=== PATIENT | male | born 1955 | race Caucasian/White ===

== ENCOUNTER 2017-05-19 12:23 | Emergency (ER) | payer BC ==
[2017-05-19] MEDS ORDERED: Morphine 4 MG/ML VIAL ONE (13:10)
[2017-05-19 13:32] LABS: #Basophils 0.1 thou/uL (0.0-0.2); #Lymphocytes 1.5 thou/uL (1.20-3.40); #Monocytes 1.4 thou/uL (0.11-0.59); #Neutrophils 15.7 thou/uL (1.40-6.50); %Basophils 0.4 % (0.0-1.0); %Eosinophils 0.1 % (0.0-10.0); %Lymphocytes 8.2 % (21.0-51.0); %Monocytes 7.3 % (0.0-10.0); Hematocrit 46.9 % (42.0-52.0); Mean Platelet Volume 7.7 fL (7.4-10.4); Red Blood Cell (RBC) Count 4.71 mill/uL (4.70-6.10); White Blood Cell (WBC) Count 18.7 thou/uL (4.8-10.8)
--- NOTE | 2017-05-19 13:35 | ULT ---
SCROTAL ULTRASOUND: TECHNIQUE: Burroughs scale, Doppler color flow imaging, and spectral analysis performed. INDICATION: Right scrotal edema, erythema. FINDINGS: Doppler evaluation reveals flow to each testis without sonographic evidence of torsion. Bilateral hy drocele formation is present. No evidence of an intratesticular mass. Right testis measures approximately 5.4 cm in length and the left testis 4.6 cm in length. IMPRESSION: 1. No sonographic evidence of testicular torsion or mass. 2. Bilateral hydrocele formation, more notable on the right. Correlate clinically. POS: ZAHIDA
[2017-05-19] MEDS ORDERED: Ondansetron HCl/PF 4 MG/2 ML Vial ONE (14:27)
[2017-05-19 14:52] LABS: Bilirubin Negative (Negative); Blood, Urine Negative (Negative); Glucose, Urine (Dipstick) Negative (Negative); Ketone, Urine Negative (Negative); Nitrite Positive (Negative); Protein, Urine (Dipstick) Negative (Neg-Trace)
[2017-05-19 14:55] LABS: Bacteria/HPF 3+ HPF (None Seen); Hyaline Casts/LPF 0-3 HYALINE CAST LPF (0-3 Hyaline); RBC/HPF 0-3 HPF (0-3); Squamous Epithelial None Seen HPF (0-3)
[2017-05-19 15:02] LABS: ALT (SGPT) 12 U/L (8-55); AST (SGOT) 15 U/L (5-34); Alkaline Phosphatase 85 U/L (40-150); Anion Gap 13 mmol/L (10-20); BUN (Urea Nitrogen) 12 mg/dL (8.4-25.7); Bilirubin, Total 0.7 mg/dL (0.2-1.2); Calc. Creatinine Clearance 0 mL/min (70-130); Calcium 9.8 mg/dL (7.8-10.44); Carbon Dioxide 30 mmol/L (23-31); Chloride 97 mmol/L (98-107); Estimated GFR-MDRD Greater than 90; Globulin 3.2 g/dL (2.4-3.5); Protein, Total 7.4 g/dL (5.8-8.1)
[2017-05-19] MEDS ORDERED: Ciprofloxacin 500 MG TAB ONE ×2 (15:09→15:28)
== END 2017-05-19 15:08 | disposition home or self-care (01) ==
LOC: ERS 12:23
DX: N39.0 Urinary tract infection, site not specified (principal); E78.5 Hyperlipidemia, unspecified; F17.210 Nicotine dependence, cigarettes, uncomplicated; I10 Essential (primary) hypertension; J44.9 Chronic obstructive pulmonary disease, unspecified; K21.9 Gastro-esophageal reflux disease without esophagitis; Z79.899 Other long term (current) drug therapy
CPT/HCPCS: 36415; 76870; 80053; 81003; 81015; 85025; 93976; 96374; 96375; 99406; J2270; J2405

== ENCOUNTER 2018-07-12 09:26 | Outpatient (CLI) | payer BC ==
--- NOTE | 2018-07-12 12:30 | RAD ---
RADIOGRAPH LUMBAR SPINE 3 VIEWS: 07/12/2018 HISTORY: A 63-year-old male with M48.061, lumbar stenosis with claudication. COMPARISON: 09/19/2010 TECHNIQUE: Three lateral views in flexion, extension, and neutral. FINDINGS: Prior study's AP view demonstrates five lumbar type vertebrae. Vertebral body heights are maintained . Endplate sclerosis and marginal osteophytes at all levels. Disk space narrowing is moderate to se becky at T12-L1, severe at L1-L2 and at L2-L3, moderate at L3-L4 and L4-L5, and severe at L5-S1. The disk space narrowing has worsened at most levels compared to 2010. There is degenerative facet disea se at L5-S1 bilaterally. Slight degenerative retrolisthesis of L1 on L2, L2 on L3, and L3 on L4. No major anterolisthesis. No instability between flexion and extension. Baastrup's disease throughout . IMPRESSION: 1. Lumbar spondylosis with multilevel high-grade degenerative disk disease. 2. No instability between flexion and extension. JN [] POS: ZAHIDA
--- NOTE | 2018-07-12 12:38 | MRI ---
NONCONTRAST MRI LUMBAR SPINE: Date: 07-12-18 History: Lumbar stenosis with claudication. Patient has had many years of low back pain which is now getting worse. Bilateral lower extremity pain and numbness. Comparison: None available. FINDINGS: There are two increased T2 weighted signal intensity lesions within the superior pole of the right ki dney, the largest measures 1.6 cm, statistically likely representing a small cyst but are difficult t o adequately characterize on this exam. The remainder of the retroperitoneal structures demonstrate a normal MRI appearance. Multilevel degenerative changes are seen throughout the lumbar spine with vacuum phenomenon seen at a ll levels. There is a rounded area of increased T1 and T2 weighted signal intensity seen in the L3 ve rtebral body likely reflective of a hemangioma. Generalized heterogeneity of the bone marrow is prese nt. The conus medullaris is normal in appearance and terminates at the inferior aspect of the L1 vertebra l body. T11-12: There is loss of intervertebral disc height. There is a disc osteophyte complex present. Neur al foramina are incompletely imaged, but there is a suggestion of at least moderate left sided neural foraminal narrowing and mild right sided neural foraminal narrowing. There is narrowing of the ventr al subarachnoid space and encroachment on the anterior aspect of the spinal cord. T12-L1: There is loss of intervertebral disc height. There is a disc osteophyte complex present with facet hypertrophic changes. There is mild narrowing of the central spinal canal. The right neural for kashif are patent. L1-2: There is loss of intervertebral disc height. Endplate degenerative changes are present. There i s a disc osteophyte complex and facet degenerative changes. There is mild narrowing of the central sp inal canal. The neural foramina are patent. L2-3: There is loss of intervertebral disc height. Endplate degenerative changes are present. There i s a broad based disc osteophyte complex present. Facet degenerative changes and mild ligamentous hype rtrophy noted. There is moderate to severe narrowing of the central spinal canal as well as narrowing in the lateral recesses at this level. There is moderate to severe right and moderate left sided jaswant ral foraminal narrowing. L3-4: There is loss of intervertebral disc height. There is a broad based disc osteophyte complex pre sent. Facet hypertrophic changes are noted. Findings result in moderate narrowing of the central spin al canal with moderate bilateral neural foraminal narrowing, greater on the right. L4-5: There is a disc osteophyte complex present. Facet hypertrophic changes are noted. There is mild narrowing of the central spinal canal with moderate to severe left and moderate right sided neural f oraminal narrowing. L5-S1: There is a Schmorl's node in the superior endplate of the L5 vertebral body. There is loss of intervertebral disc height at the L5-S1 level with mild endplate degenerative changes present. There is a broad based disc osteophyte complex present. There is severe facet hypertrophic changes noted. T here is mild generalized narrowing of the central spinal canal. There is moderate to severe right and severe left sided neural foraminal narrowing. Due to the disc osteophyte complex, there is encroachm ent on the traversing left S1 nerve root. Endplate degenerative changes are noted at this level. There is mild left convex scoliosis of the lumbar spine. IMPRESSION: 1. Multilevel degenerative changes seen throughout the lumbar spine with disc degenerative changes at all levels of the lumbar spine and visualized lower thoracic spine. Greatest degree of neural forami nal narrowing is seen at the lumbosacral junction where there is severe left sided neural foraminal n arrowing. 2. Increased T2 weighted signal intensity lesions in the right kidney, statistically likely represent ing renal cysts. POS: ZAHIDA
== END 2018-07-12 09:27 | disposition home or self-care (01) ==
LOC: TBSIIMAG 09:26
PROVIDERS: ATTEND Neurological Surgery
DX: M48.062 Spinal stenosis, lumbar region with neurogenic claudication (principal); M47.816 Spondylosis without myelopathy or radiculopathy, lumbar region; M51.36 Other intervertebral disc degeneration, lumbar region; M48.07 Spinal stenosis, lumbosacral region; N28.9 Disorder of kidney and ureter, unspecified; M51.34 Other intervertebral disc degeneration, thoracic region
CPT/HCPCS: 72100; 72148

== ENCOUNTER 2018-08-01 06:22 | Day surgery (SDC) | payer BC ==
[2018-07-29 14:48] VITALS: BMI 35.9
[2018-08-01 07:08] LABS: #Basophils 0.1 thou/uL (0.0-0.2); #Eosinphils 0.2 thou/uL (0.0-0.7); #Lymphocytes 2.5 thou/uL (1.20-3.40); #Monocytes 0.7 thou/uL (0.11-0.59); #Neutrophils 8.9 thou/uL (1.40-6.50); %Basophils 0.7 % (0.0-1.0); %Eosinophils 1.4 % (0.0-10.0); %Monocytes 5.8 % (0.0-10.0); %Neutrophils 72.1 % (42.0-75.0); Hemoglobin 15.5 g/dL (14.0-18.0); Mean Corpuscular HGB CONC 33.9 g/dL (32.0-36.0); Mean Corpuscular Hemoglobin 33.1 pg (27.0-31.0); Mean Corpuscular Volume 97.7 fL (78.0-98.0); Mean Platelet Volume 7.6 fL (7.4-10.4); Platelet Count 299 thou/uL (130-400); RBC Distribution Width 12.2 % (11.5-14.5); Red Blood Cell (RBC) Count 4.69 mill/uL (4.70-6.10); White Blood Cell (WBC) Count 12.3 thou/uL (4.8-10.8)
[2018-08-01] MEDS ORDERED: CEFAZOLIN 2 GM/50 ML BAG ONE (07:13)
[2018-08-01 07:29] LABS: Anion Gap 17 mmol/L (10-20); BUN (Urea Nitrogen) 13 mg/dL (8.4-25.7); Calc. Creatinine Clearance 144 mL/min (70-130); Calcium 9.7 mg/dL (7.8-10.44); Carbon Dioxide 23 mmol/L (23-31); Chloride 103 mmol/L (98-107); Estimated GFR-MDRD Greater than 90; Glucose 165 mg/dL (80-115); Potassium 4.4 mmol/L (3.5-5.1); Sodium 139 mmol/L (136-145)
[2018-08-01] MEDS ORDERED: Fentanyl 100 MCG/2 ML VIAL ONE ×4 (10:29→12:51)
--- NOTE | 2018-08-01 12:02 | OP ---
DATE OF PROCEDURE: 08/01/2018 APPLICATION COUNSELOR: Lois Sarmiento PA-C. PROCEDURE PERFORMED: L2-L3 laminectomy. DESCRIPTION OF PROCEDURE: The patient was brought to the operating room and intubated. He was rolled in a prone position on gel-filled chest rolls. An incision was made exposing L2 and L3, and the level was confirmed by x-ray. We performed complete L3 and inferior L2 laminectomy, completely decompressed the neural elements. The wound was then extensively irrigated and maximum hemostasis was secured. Vancomycin powder was applied and the wound was closed in anatomic layers. Job ID: [id number]
[2018-08-01] MEDS ORDERED: Glycopyrrolate 0.2 MG/ML 5 ML SYRINGE ONE (13:46)
[2018-08-01] MEDS ORDERED: PROPOFOL 200 MG/20 ML VIAL ONE (13:46)
[2018-08-01] MEDS ORDERED: Ondansetron PF 4 MG/2 ML Vial ONE (13:46)
[2018-08-01] MEDS ORDERED: Rocuronium Bromide 10 MG/ML (10ML VIAL) ONE (13:46)
[2018-08-01] MEDS ORDERED: Dexamethasone 20 MG/5 ML VIAL ONE (13:46)
[2018-08-01] MEDS ORDERED: Lidocaine 1% PF 5 ML VIAL ONE (13:46)
[2018-08-01] MEDS ORDERED: HYDROcodone/Acetaminophen 5/325 mg Tablet ONE (15:11)
--- NOTE | 2018-08-01 20:18 | EKG ---
Test Reason : PREOP Blood Pressure : / mmHG Vent. Rate : 107 BPM Atrial Rate : 107 BPM P-R Int : 150 ms QRS Dur : 088 ms QT Int : 362 ms P-R-T Axes : 051 -63 045 degrees QTc Int : 483 ms Sinus tachycardia Left anterior fascicular block Cannot rule out Inferior infarct (masked by fascicular block?) , age undetermined Abnormal ECG No previous ECGs available Confirmed by JESUS BUENO, DR. Neumann ([id number]) on 08/01/2018 8:18:16 PM Referred By: VICTOR MANUEL Confirmed By:DR. Thien LEE MD
== END 2018-08-01 15:32 | disposition home or self-care (01) ==
LOC: SDC 06:22
PROVIDERS: ATTEND Neurological Surgery
PROC: 01NB0ZZ Release Lumbar Nerve, Open Approach (ICD-10-PCS; principal; 2018-08-01)
DX: M48.062 Spinal stenosis, lumbar region with neurogenic claudication (principal); I10 Essential (primary) hypertension; K21.9 Gastro-esophageal reflux disease without esophagitis; Z88.2 Allergy status to sulfonamides; Z91.011 Allergy to milk products; Z79.1 Long term (current) use of non-steroidal anti-inflammatories (NSAID); Z79.899 Other long term (current) drug therapy
CPT/HCPCS: 36415; 76000; 80048; 85025; 93005; 93010; J0131; J1100; J2001; J2405; J2704; J3010; J3370; J3490

== ENCOUNTER 2021-06-12 10:26 | Outpatient (CLI) | payer MEDICARE | END 2021-06-12 10:27 | disposition home or self-care (01) | LOC: PET 10:26 | PROVIDERS: ATTEND Internal Medicine Critical Care Medicine | DX: R91.1 Solitary pulmonary nodule (principal) | CPT/HCPCS: 78815; A9552 ==

== ENCOUNTER 2022-01-01 10:24 | Outpatient (CLI) | payer MEDICARE | END 2022-01-01 10:25 | disposition home or self-care (01) | LOC: BICCT 10:24 | PROVIDERS: ATTEND Internal Medicine Critical Care Medicine | DX: R91.8 Other nonspecific abnormal finding of lung field (principal) | CPT/HCPCS: 71250 ==